=== PATIENT | female | born 1940 | race Hispanic/Latino ===

== ENCOUNTER → 2017-09-12 17:46 | Outpatient (CLI) | payer MEDICARE, SELFPAY ==
--- NOTE | 2017-09-12 17:53 | DI.MRI.S_ITS ---
PROCEDURE: MR ANKLE LT WO CON INDICATIONS: 77 year-old female with medial left ankle pain for 4 weeks. TECHNIQUE: Noncontrast sagittal T1 spin echo and T2 fast spin echo with fat saturation, axial proton density fast spin echo and T2 fast spin echo with fat saturation, coronal T1 spin echo and T2 fast spin echo with fat saturation through the ankle/hindfoot. COMPARISON: None. FINDINGS: Skin marker denotes the site of clinical concern. Image quality: Excellent. Bones and joints: No bone marrow contusions or fractures. An os naviculare is present, with a small amount of localized bone marrow edema on axial image 34. No hindfoot coalitions. Intraosseous ganglion cysts are noted both superior and inferior to the sinus tarsi. No osteochondral injuries of the talar dome. Degenerative intraosseous ganglion cysts are noted within the medial distal fibula. There is talonavicular joint degeneration as well, with localized subchondral marrow edema and cyst formation from full-thickness cartilage loss. No pathologic joint effusions. Medial structures: The posterior tibialis, flexor digitorum longus, and flexor hallucis longus tendons are intact. The posterior tibial neurovascular bundle appears normal within the tarsal tunnel, without extrinsic mass effect. The deep layer (anterior and posterior tibiotalar ligaments) and superficial layer (tibionavicular, tibiospring, and tibiocalcaneal ligaments) of the deltoid ligament appear normal. The spring ligament components (superomedial calcaneonavicular, medioplantar oblique calcaneonavicular, and inferoplantar longitudinal ligaments) are intact. Lateral structures: The anterior talofibular, calcaneofibular, and posterior talofibular ligaments appear intact. More superiorly, the anterior and posterior tibiofibular ligaments appear intact, as is the intermalleolar ligament. The tibiofibular syndesmosis is normal in width at 2 mm or less. The peroneus longus and brevis tendons demonstrate normal location and morphology. Adjacent bony peroneal tubercle and retrotrochlear prominence are normal in size. The sinus tarsi demonstrates loss of normal fatty signal, consistent with fibrosis. The calcaneonavicular and calcaneocuboid components of the bifurcate ligament appear intact. The dorsal calcaneocuboid ligament appears intact. Anterior structures: The tibialis anterior, extensor hallucis longus, and extensor digitorum longus tendons appear intact. The dorsal talonavicular ligament appears intact. Posterior and plantar structures: Achilles tendon is intact. Medial and lateral bands of the plantar fascia are of normal thickness. No abductor digiti quinti muscle atrophy to suggest Kwong neuropathy. IMPRESSION: 1. No imaging explanation for medial plantar left hindfoot pain corresponding to the skin marker. 2. 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 3. Additional localized joint degeneration involving the talonavicular joint, as well as the lateral aspect of the ankle mortise. 4. Os naviculare, with small localized bone marrow edema suggesting chronic abnormal bony motion. Dictated by: Jason Wen M.D. on 09/13/2017 at 8:32 Approved by: Jason Wen M.D. on 09/13/2017 at 8:42
== END ==
PROVIDERS: Family Provider Physician Assistant; PCP Physician Assistant; Visit Provider Podiatrist
DX: M19.072 Primary osteoarthritis, left ankle and foot (principal); M25.572 Pain in left ankle and joints of left foot
CPT/HCPCS: 73721

== ENCOUNTER → 2018-03-29 11:22 | Outpatient (CLI) | payer MEDICARE, SELFPAY ==
--- NOTE | 2018-03-29 | DI.RAD.S_ITS ---
PROCEDURE: XR THORACIC SPINE 3V INDICATIONS: THORACIC AND LUMBAR PAIN TECHNIQUE: 3 views of the thoracic spine were acquired. COMPARISON: None. FINDINGS: Bones: No fractures or dislocations. No suspicious bony lesions. Diffuse endplate sclerosis and spurring. Incidentally noted cervical disc degeneration. Soft tissues: No paravertebral stripe thickening. IMPRESSION: Diffuse cervical and thoracic disc degeneration. No fracture Dictated by: Sincere Mcmullen M.D. on 03/29/2018 at 12:44 Approved by: Sincere Mcmullen M.D. on 03/29/2018 at 12:45
--- NOTE | 2018-03-29 | DI.RAD.S_ITS ---
PROCEDURE: XR LUMBAR SPINE 2-3V INDICATIONS: THORACIC AND LUMBAR PAIN TECHNIQUE: 3 views of the lumbar spine were acquired. COMPARISON: [facility], , L-SPINE 2-3 VIEWS, 09/17/2014, 13:03. FINDINGS: Bones: No fracture or focal osseous destruction. Diffuse endplate spurring and sclerosis. Straightening of the normal lumbar lordosis grade 1 retrolisthesis of L2 on L3 and a L3 on L4. Severe narrowing of the L2-L3 disc space. Moderate L5-S1 disc degeneration and disc space narrowing. Soft tissues: Overlying bowel gas pattern is normal. Nonspecific right pelvic calcifications . Vascular calcifications. 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 Dictated by: Sincere Mcmullen M.D. on 03/29/2018 at 12:46 Approved by: Sincere Mcmullen M.D. on 03/29/2018 at 12:57
--- NOTE | 2018-03-29 11:28 | DI.RAD.S_ITS ---
PROCEDURE: XR HIP W PEL IF DONE RT 2V INDICATIONS: RIGHT HIP PAIN, THORACIC AND LUMBAR PAIN TECHNIQUE: 2 views of the hip were acquired. COMPARISON: [facility], , PELVIS WITH BILATERAL HIPS, 09/17/2014, 13:03. FINDINGS: Bones: No fractures or dislocations. No suspicious bony lesions. The visualized pelvic ring appears intact. Moderate right hip joint degeneration. Soft tissues: No suspicious soft tissue calcifications or masses. Nonspecific right pelvic calcifications are present IMPRESSION: Moderate right hip joint degeneration. No interval change since 09/17/14 Dictated by: Sincere Mcmullen M.D. on 03/29/2018 at 12:42 Approved by: Sincere Mcmullen M.D. on 03/29/2018 at 12:44
== END ==
PROVIDERS: Family Provider Physician Assistant; PCP Physician Assistant; Visit Provider Physician Assistant
DX: M25.551 Pain in right hip (principal); M54.5 Low back pain; M16.11 Unilateral primary osteoarthritis, right hip; M50.30 Other cervical disc degeneration, unspecified cervical region; M51.34 Other intervertebral disc degeneration, thoracic region; M51.36 Other intervertebral disc degeneration, lumbar region; M51.37 Other intervertebral disc degeneration, lumbosacral region; M47.816 Spondylosis without myelopathy or radiculopathy, lumbar region
CPT/HCPCS: 72072; 72082; 72100; 73502

== ENCOUNTER → 2018-06-23 10:31 | Outpatient (CLI) | payer MEDICARE, SELFPAY ==
--- NOTE | 2018-06-23 | DI.MG.S_ITS ---
BILATERAL DIGITAL SCREENING MAMMOGRAM 3D/2D WITH CAD: 06/23/2018 CLINICAL: Routine screening. Comparison is made to exams dated: 05/17/2017 mammogram - [facility], 12/13/2011 mammogram, and 12/29/2009 mammogram - [facility]. The tissue of both breasts is heterogeneously dense. This may lower the sensitivity of mammography. Current study was also evaluated with a Computer Aided Detection (CAD) system. There are benign calcifications in both breasts. No significant masses, calcifications, or other findings are seen in either breast. There has been no significant interval change. IMPRESSION: There is no mammographic evidence of malignancy. A 1 year screening mammogram is recommended. This exam was interpreted at Station ID: [id number]. NOTE: For mammograms, a report in lay terms will be sent to the patient. Approximately 15% of breast malignancies will not be visualized mammographically. In the management of a palpable breast mass, a negative mammogram must not discourage biopsy of a clinically suspicious lesion. Electronically Signed By: Rubin del rio/javy:06/25/2018 17:20:13 letter sent: Normal Exam ACR BI-RADS Category 2: Benign Finding(s) 3342F
== END ==
PROVIDERS: PCP Physician Assistant; Visit Provider Physician Assistant
DX: Z12.31 Encounter for screening mammogram for malignant neoplasm of breast (principal)
CPT/HCPCS: 77063; 77067

== ENCOUNTER 2018-09-13 05:07 | Emergency (ER) | payer MEDICARE, SELFPAY ==
[2018-09-13 05:18] VITALS: BP 175/73; PULSE 61; RESP 15; TEMP 36.8; O2SAT 95; BMI 35.2
--- NOTE | 2018-09-13 05:29 | ED_ITS ---
HPI - Abdominal Pain General Chief Complaint: Abdominal Pain Stated Complaint: pain on left side for 3 days Time Seen by Provider: 09/13/18 05:28 Source: patient Mode of arrival: ambulatory Limitations: no limitations History of Present Illness HPI narrative: Patient is relatively year old female here for evaluation of left sided upper abdomen pain. Patient states has been going on for the past 3 days. Has been worsening over this time. Some loose stools yesterday otherwise no diarrhea. No blood in her stools. No urinary symptoms. No vaginal bleeding. Had no prior abdominal surgeries. She states that the pain is somewhat better with palpation left side. She states that when she does press on the left side of her abdomen she belches which relieved her symptoms slightly for very short period of time. No change when she urinates. No history kidney stones. No skin changes. Related Data Home Medications Medication Instructions Recorded Confirmed Resmed Airsense 10 CPAP #1 ea 08/06/18 08/06/18 Allergies Allergy/AdvReac Type Severity Reaction Status Date / Time codeine Allergy Verified 08/06/18 13:29 Review of Systems Constitutional Denies fever(s) Cardiovascular Denies chest pain and Denies dyspnea Respiratory Denies dyspnea Gastrointestinal Gastrointestinal: Reports abdominal pain, Reports bloating, Denies change in stool character, Denies nausea and Denies vomiting Genitourinary Denies dysuria and Denies vaginal discharge Musculoskeletal Denies myalgias and Denies arthralgias Integumentary/Breasts Denies rash Neurologic Denies behavioral changes Psychiatric Denies behavioral changes Hematologic/Lymphatic Denies easy bleeding and Denies easy bruising [facility] Medical History (Updated 09/13/18 @ 07:18 by Irving Major DO) Sleep apnea (Acute) Social History Smoking Status: Former smoker Social History Smoking Status: Former smoker Exam Initial Vital Signs Initial Vital Signs: Vital Signs Temperature 98.2 F 09/13/18 05:18 Pulse Rate 61 09/13/18 05:18 Respiratory Rate 15 09/13/18 05:18 Blood Pressure 175/73 H 09/13/18 05:18 Pulse Oximetry 95 09/13/18 05:18 Const General: cooperative, well developed, well groomed and No acute distress Orientation: alert and awake HENMT Head: normal to inspection and normocephalic Resp Effort & Inspection: normal respiratory effort Auscultation: clear to auscultation bilaterally Cardio Rate: regular rate Rhythm: regular rhythm GI Inspection: non-distended Palpation: soft, No firm and tender (Left-sided abdomen) Auscultation: normal bowel sounds Back/Spine/Pelvis Back: No CVA tenderness Skin Lesions: no lesions Rashes: no rashes Neuro General: alert and awake Cognition: normal cognition Speech: speech normal Extrem General: normal to inspection and capillary refill normal Psych Appearance: grossly normal and well kempt Course Orders Ordered: ED Orders 09/13/18 05:30 Complete Blood Count AUTO DIFF Stat Comprehensive Metabolic Panel Stat Lactate (Lactic Acid) Stat Lipase Stat 09/13/18 05:36 CT abdomen pelvis w con Stat 09/13/18 05:40 Urine Microscopic Stat Sodium Chloride (Normal Saline 0.9%) 1,000 mls @ 150 mls/hr IV CONT EVANGELISTA Last Admin: 09/13/18 05:45 Dose: 150 mls/hr Discontinued Medications Al Hydrox/Mg Hydrox/Simethicone 20 ml/ Lidocaine HCl 15 ml 0 ml PO NOW ONE Stop: 09/13/18 07:01 Last Admin: 09/13/18 07:02 Dose: 45 ml Vital Signs - 8 hr 09/13/18 05:18 09/13/18 05:40 09/13/18 06:26 Temperature 98.2 F Pulse Rate 61 67 65 Respiratory Rate 15 16 16 Blood Pressure 175/73 H Blood Pressure [Right Arm] 159/92 H 151/73 H Pulse Oximetry 95 96 97 MDM - Abdominal Pain Lab Data Attestation: I reviewed the patient's lab results. Result diagrams: 09/13/18 05:30 09/13/18 05:30 Lab Results 09/13/18 09/13/18 09/13/18 Range/Units 05:30 05:30 05:30 WBC 7.6 (4.5-11.0) X10^3/uL RBC 4.77 (4.0-5.2) X10^6/uL Hgb 14.5 (12.0-16.0) g/dL Hct 42.8 (36-46) % MCV 89.8 (80-100) fL MCH 30.3 (26-34) PG MCHC 33.8 (30-36) % RDW 13.3 (11.6-14.8) % Plt Count 149 L (150-400) X10^3/uL Neut % (Auto) 55.6 (50-75) % Lymph % (Auto) 33.7 (25-40) % [place] % (Auto) 7.9 (3-14) % Eos % (Auto) 2.1 (2-4) % Baso % (Auto) 0.7 (0-2) % Neut # (Auto) 4200 (5671-8048) /uL Lymph # (Auto) 2500 (1966-2314) /uL [place] # (Auto) 600 (0-900) /uL Eos # (Auto) 200 (0-450) /uL Baso # (Auto) 100 (0-100) /uL Sodium 140 (137-145) mmol/L Potassium 3.9 (3.4-5.1) mmol/L Chloride 104 (98-107) mmol/L Carbon Dioxide 28 (22-32) mmol/L BUN 21 H (7-17) mg/dL Creatinine 0.80 (0.52-1.04) mg/dL Estimated GFR > 60.0 (>60) mL/min BUN/Creatinine Ratio 26.3 H (6-22) Glucose 119 H (80-110) mg/dL Lactate 1.3 (0.7-2.1) mmol/L Calcium 9.4 (8.4-10.2) mg/dL Total Bilirubin 0.6 (0.2-1.3) mg/dL AST 40 H (14-36) IU/L ALT 43 (9-52) IU/L Alkaline Phosphatase 84 (38-126) U/L Total Protein 7.2 (6.3-8.2) g/dL Albumin 4.0 (3.5-5.0) g/dL Globulin 3.2 (1.7-4.1) g/dL Albumin/Globulin Ratio 1.3 (1.0-2.8) Lipase 97 (23-300) U/L Urine RBC (0-5/HPF) Urine WBC (0-5/HPF) Ur Squamous Epith Cells (0-5/HPF) Urine Bacteria (None) Ur Culture Indicated? 09/13/18 Range/Units 05:40 WBC (4.5-11.0) X10^3/uL RBC (4.0-5.2) X10^6/uL Hgb (12.0-16.0) g/dL Hct (36-46) % MCV (80-100) fL MCH (26-34) PG MCHC (30-36) % RDW (11.6-14.8) % Plt Count (150-400) X10^3/uL Neut % (Auto) (50-75) % Lymph % (Auto) (25-40) % [place] % (Auto) (3-14) % Eos % (Auto) (2-4) % Baso % (Auto) (0-2) % Neut # (Auto) (3720-2988) /uL Lymph # (Auto) (0422-6809) /uL [place] # (Auto) (0-900) /uL Eos # (Auto) (0-450) /uL Baso # (Auto) (0-100) /uL Sodium (137-145) mmol/L Potassium (3.4-5.1) mmol/L Chloride (98-107) mmol/L Carbon Dioxide (22-32) mmol/L BUN (7-17) mg/dL Creatinine (0.52-1.04) mg/dL Estimated GFR (>60) mL/min BUN/Creatinine Ratio (6-22) Glucose (80-110) mg/dL Lactate (0.7-2.1) mmol/L Calcium (8.4-10.2) mg/dL Total Bilirubin (0.2-1.3) mg/dL AST (14-36) IU/L ALT (9-52) IU/L Alkaline Phosphatase (38-126) U/L Total Protein (6.3-8.2) g/dL Albumin (3.5-5.0) g/dL Globulin (1.7-4.1) g/dL Albumin/Globulin Ratio (1.0-2.8) Lipase (23-300) U/L Urine RBC None seen (0-5/HPF) Urine WBC None seen (0-5/HPF) Ur Squamous Epith Cells 1-5 /hpf (0-5/HPF) Urine Bacteria Occasional (0-1) (None) Ur Culture Indicated? Cult not indicated Point of care testing: Urine Dip Bedside Urine Glucose Negative Bedside Urine Bilirubin - Negative Bedside Urine Ketone - Negative Urine Specific [place] 1.020 Bedside Urine Occult Blood +/- Bedside Urine pH 6.0 Bedside Urine Protein - Negative Bedside Urine Urobilinogen - Negative Bedside Urine Nitrite - Negative Bedside Urine Leukocytes - Negative Esterase Imaging Data CT scan - abdomen: Radiologist's impression: L defined stranding noted at the root of the mesentery with associated prominent yet subcentimeter mesenteric lymph nodes. This is a nonspecific finding but can be seen in the setting of mesenteric panniculitis. Hepatic steatosis. Right renal cyst. No evidence of colitis diverticulitis bowel obstruction or obstructive uropathy. MDM Narrative Medical decision making narrative: Patient does have relatively benign abdominal exam. Her labs were unremarkable. CT scan shows nonspecific stranding of the mesentery. Patient also reports some improvement with pressure and also burping and worsening after she eats. She was given a GI cocktail here in the ER. Will have her start taking Zantac. She is going to contact her primary doctor later today. She is given return precautions she expressed understanding and agreement with plan. Discharge Plan Departure Patient Disposition: Home Clinical Impression: Abdominal pain Qualifiers: Abdominal location: left upper quadrant Qualified Code(s): R10.12 - Left upper quadrant pain Instructions: DI for Abdominal Pain-Adult Activity Restrictions/Additional Instructions: Recommend that you start taking Zantac or the generic version of this medication. You can purchase this [id number]. Recommend you take it on a daily basis for the next 7-10 days. Also recommend you contact your primary doctor for follow-up. Return to the emergency department for any new or worsening symptoms Prescriptions: No Action Resmed Airsense 10 CPAP Qty: 1 RF: 0 Referrals: Isa Cardenas PA-C [Primary Care Provider] -
--- NOTE | 2018-09-13 05:36 | DI.CT.S_ITS ---
PROCEDURE: CT ABDOMEN PELVIS W CON INDICATIONS: Left-sided abdominal pain TECHNIQUE: After the administration of intravenous contrast, 5 mm thick sections acquired from the diaphragm to the symphysis. 5 mm coronal and sagittal reformats were acquired. For radiation dose reduction, the following was used: automated exposure control, adjustment of mA and/or kV according to patient size. COMPARISON: None. FINDINGS: Image quality: Excellent. ABDOMEN: Lung bases: Dependent atelectasis and scarring are seen scattered in the periphery of bilateral lung bases. Heart size is mildly enlarged, no pericardial effusion. Solid organs: Liver is normal in size. Marked hepatic steatosis is seen, no discrete hepatic lesion. Gallbladder is within normal limits. Biliary system is non dilated. Pancreas enhances normally. Spleen is normal in size and enhancement. No adrenal nodules. Kidneys demonstrate normal size and enhancement, without hydronephrosis. Multiple right renal cortical and peripelvic cysts are seen and measures up to 5.5 x 5.3 cm in lower pole of right kidney. Peritoneum and bowel: Bowel loops demonstrate normal wall thickness and caliber. No free fluid or air. There is a small hiatal hernia. Mild sigmoid diverticulosis is seen with no CT evidence of acute diverticulitis. Nodes and vessels: No retroperitoneal or mesenteric adenopathy by size criteria. Subcentimeter lymph nodes are seen scattered in root of mesentery and measures up to 6 mm in size. Mild mesenteric fat stranding is also seen near the root of mesentery. Aorta and inferior vena cava are normal in size. Miscellaneous: No ventral hernias. PELVIS: Genitourinary: Bladder wall thickness is normal. Miscellaneous: No inguinal hernias or adenopathy. Bulky uterus is seen containing multiple calcified fibroids. Bones: No suspicious bony lesions. No vertebral body compression fractures. IMPRESSION: 1. No bowel obstruction. No abnormal bowel wall thickening. No free fluid or free air. Sigmoid diverticulosis with no CT evidence of acute diverticulitis. No free fluid or free air. 2. 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 3. Hepatic steatosis. Right renal cysts as above. 4. No myomatous uterus. No discrepancies. Dictated by: Frandy Peña M.D. on 09/13/2018 at 8:51 Approved by: Frandy Peña M.D. on 09/13/2018 at 8:56
[2018-09-13 05:40] VITALS: BP 159/92; PULSE 67; RESP 16; O2SAT 96
[2018-09-13] MEDS: SODIUM CHLORIDE 0.9% 1,000 ML 150 ML IV (05:45)
[2018-09-13 05:48] LABS: RBC Urine None Seen (0-5/HPF); WBC Urine None Seen (0-5/HPF)
[2018-09-13 05:52] LABS: Add Manual Diff / Slide Review NO; Basophils Absolute Auto 100 /uL (0-100); Basophils Percent Auto 0.7 % (0-2); Eosinophils Absolute Auto 200 /uL (0-450); Eosinophils Percent Auto 2.1 % (2-4); Hematocrit 42.8 % (36-46); Hemoglobin 14.5 g/dL (12.0-16.0); Lymphocytes Absolute Auto 2500 /uL (1100-4500); Lymphocytes Percent Auto 33.7 % (25-40); Mean Corpuscular HGB Conc 33.8 % (30-36); Mean Corpuscular Hemoglobin 30.3 PG (26-34); Mean Corpuscular Volume 89.8 fL (80-100); Monocytes Absolute Auto 600 /uL (0-900); Monocytes Percent Auto 7.9 % (3-14); Neutrophils Absolute Auto 4200 /uL (1500-7000); Neutrophils Percent Auto 55.6 % (50-75); Platelet Count 149 X10^3/uL (150-400); Red Blood Cell Count 4.77 X10^6/uL (4.0-5.2); Red Cell Distribution Width 13.3 % (11.6-14.8); White Blood Cell Count 7.6 X10^3/uL (4.5-11.0)
[2018-09-13 05:58] LABS: Bacteria Urine Occasional (0-1); Culture Indicated Urine Cult Not Indicated; Squamous Epithelial Cell Urine 1-5 /HPF (0-5/HPF)
[2018-09-13 06:03] LABS: Alanine Aminotransferase 43 IU/L (9-52); Albumin Globulin Ratio 1.3 (1.0-2.8); Alkaline Phosphatase 84 U/L (38-126); Aspartate Aminotransferase 40 IU/L (14-36); BUN Creatinine Ratio 26.3 (6-22); Bilirubin Total 0.6 mg/dL (0.2-1.3); Blood Urea Nitrogen 21 mg/dL (7-17); Calcium 9.4 mg/dL (8.4-10.2); Carbon Dioxide 28 mmol/L (22-32); Chloride 104 mmol/L (98-107); Estimated Glomerular Filt Rate > 60.0 mL/min (>60); Globulin 3.2 g/dL (1.7-4.1); Glucose 119 mg/dL (80-110); HEMOLYSIS < 15 (0-50); Lipase 97 U/L (23-300); Potassium 3.9 mmol/L (3.4-5.1); Sodium 140 mmol/L (137-145); Total Protein 7.2 g/dL (6.3-8.2)
[2018-09-13 06:04] LABS: Lactate (Lactic Acid) 1.3 mmol/L (0.7-2.1)
[2018-09-13 06:26] VITALS: BP 151/73; PULSE 65; RESP 16; O2SAT 97
[2018-09-13] MEDS: MAG HYDROX/ALUMINUM/SIMETH SUS 20 ML, LIDOCAINE VISCOUS 2% 15 ML PO (07:02)
[2018-09-13 07:37] VITALS: BP 156/80; PULSE 70; RESP 17; O2SAT 99
== END 2018-09-13 07:39 | disposition home or self-care (01) ==
PROVIDERS: Emergency Provider Emergency Medicine; PCP Student in an Organized Health Care Education/Training Program
DX: R10.12 Left upper quadrant pain (principal)
CPT/HCPCS: 36591; 74177; 80053; 81003; 81015; 83605; 83690; 85025; 96360; 96361; 99283; 99284; Q9967

== ENCOUNTER 2018-09-25 13:49 | Day surgery (SDC) | payer MEDICARE, SELFPAY ==
[2018-09-25] MEDS: SODIUM CHLORIDE 0.9% 1,000 ML 200 ML IV (14:05)
[2018-09-25 14:10] VITALS: BP 120/75; PULSE 76; RESP 20; TEMP 36.4; O2SAT 98
[2018-09-25 14:11] VITALS: BMI 34.7
--- NOTE | 2018-09-25 14:16 | PM.HP.1 ---
History of Present Illness Date Patient Seen: 09/25/18 Time Patient Seen: 14:16 Chief complaint: [id number] Narrative: 78yo F with history of polyps and family history of CRC in mother who was in her 90s at diagnosis. No symptoms in patient. Last scope 5 years ago with findings of diverticulosis and a 'diminutive' polyp. Patient History Medical History Sleep apnea (Acute) Social History Smoking Status: Former smoker Family & Social History Tobacco & Substance use: Smoking Status Former smoker alcohol intake frequency holiday/special occasion Substance Use Type does not use Meds Home Medications Medication Instructions Recorded Confirmed Type Resmed Airsense 10 CPAP #1 ea 08/06/18 08/06/18 History Allergies Allergy/AdvReac Type Severity Reaction Status Date / Time codeine Allergy Verified 08/06/18 13:29 Review of Systems Constitutional Constitutional: Reports as per HPI Exam Vital Signs (past 8 hours): - 09/25/18 14:10 Temperature 97.6 F Pulse Rate 76 Respiratory Rate 20 Blood Pressure 120/75 Pulse Oximetry 98 Oxygen Delivery Method Room Air Narrative Exam Narrative: AAO, NAD, female of healthy weight EOMI, MMM, no scleral icterus unlabored RA soft, nt/nd MAEW visible skin dry and intact Assessment & Plan (1) History of colon polyps: Current visit: Yes Status: Acute Assessment & Plan narrative: - plan for surveillance colonoscopy in high risk patient --> all R/B/A discussed and pt wishes to proceed
[2018-09-25] MEDS: MIDAZOLAM 5 MG/5 ML VIAL IV (14:56)
[2018-09-25] MEDS: fentaNYL 250 MCG/5 ML INJ IV (14:58)
--- NOTE | 2018-09-25 15:05 | PM.OP.ENDO ---
Operative Date/Time/Diagnoses Date of procedure: 09/25/18 Time of procedure: 15:05 Pre-op diagnosis: Surveillance colonoscopy Post-op diagnosis: same Procedure & Clinicians Study performed: Surveillance colonoscopy in high risk patient Same procedure as scheduled: Yes Indications: 78yo F with family history of CRC and a personal history of small benign polyps on last screen 5 years ago. No concerning symptoms. All risks, benefits, and alternatives discussed and pt wishes to proceed. Surgeon: Jeanette Wiggins Procedure Notes SCOAP/Timeout: 1432 Procedure in detail: After obtaining informed consent, the patient was brought to the GI suite and placed in the left lateral decubitus position on the examination table. After placement of appropriate monitors, the patient was given incremental doses of Versed and Fentanyl until an appropriate level of sedation was achieved. A time out was held per SCOAP protocol. A digital rectal examination was performed and did not reveal any masses or obstructing lesions. The colonoscope was gently passed into the patient's anus and the entire colon navigated to the level of the cecum with minimal difficulty other than some challenge dropping into the cecum which was aided by abdominal pressure. Prep was adequate. Once in the cecum, the scope was slowly withdrawn being sure to go before and beyond all mucosal folds and prominences as able to get a thorough examination. No masses or polyps are noted. A few small and scattered diverticula were noted in the sigmoid colon. At the level of the rectal vault, the scope was retroflexed and the internal anal canal was examined. The scope was straightened and air aspirated from the colon. The instrument was removed from the patient's body and the procedure was concluded. The patient was allowed to awaken from sedation without difficulty and taken to the post-anesthesia care unit in good condition. Scope withdrawal time: 9 min Sedation minutes: 30 Findings: diverticulosis (small and scattered through sigmoid) Specimen(s): none sent Complications: none Impression: Diverticulosis- few, small and scattered in sigmoid Recommendations: Colonscopy in 5 years (due to high risk ) and High fiber diet Follow up: as needed Disposition: PACU
[2018-09-25 15:10] VITALS: BP 134/70; PULSE 67; RESP 15; TEMP 36.3; O2SAT 94
[2018-09-25 15:15] VITALS: BP 123/63; PULSE 63; RESP 14; O2SAT 94
[2018-09-25 15:20] VITALS: BP 123/62; PULSE 62; RESP 14; O2SAT 94
[2018-09-25 15:25] VITALS: BP 117/62; PULSE 61; RESP 16; TEMP 36.3; O2SAT 94
[2018-09-25 15:49] VITALS: BP 112/61; PULSE 72; RESP 16; TEMP 35.8; O2SAT 95
== END 2018-09-25 16:56 | disposition home or self-care (01) ==
PROVIDERS: PCP Student in an Organized Health Care Education/Training Program; Visit Provider Surgery
PROC: 0DJD8ZZ Inspection of Lower Intestinal Tract, Via Natural or Artificial Opening Endoscopic (ICD-10-PCS; CPT 45378; principal; 2018-09-25 15:00)
DX: Z86.010 Personal history of colon polyps (principal); Z80.0 Family history of malignant neoplasm of digestive organs; K57.30 Diverticulosis of large intestine without perforation or abscess without bleeding; G47.30 Sleep apnea, unspecified; Z87.891 Personal history of nicotine dependence
CPT/HCPCS: G0105; 99152; 99153; J2250; J3010

== ENCOUNTER → 2019-01-30 13:30 | Outpatient (CLI) | payer MEDICARE, SELFPAY | PROVIDERS: PCP Student in an Organized Health Care Education/Training Program; Visit Provider Student in an Organized Health Care Education/Training Program | DX: M85.852 Other specified disorders of bone density and structure, left thigh (principal); Z78.0 Asymptomatic menopausal state | CPT/HCPCS: 77080 ==

== ENCOUNTER → 2020-05-20 09:45 | Outpatient (CLI) | payer MEDICARE, SELFPAY ==
--- NOTE | 2020-05-20 | DI.RAD.S_ITS ---
PROCEDURE: XR ANKLE RT MIN 3V INDICATIONS: Pain in right ankle and joints of right foot TECHNIQUE: 3 views of the ankle were acquired. COMPARISON: None. FINDINGS: Bones: No fractures or dislocations. Ankle mortise is normally aligned. No suspicious bony lesions. Soft tissues: No tibiotalar joint effusion. Achilles tendon appears normal. IMPRESSION: No trauma found. Note is made of a plantar fascia insertion spur at the posterior calcaneus which may be associated with plantar fasciitis. Dictated by: Solo Jackson M.D. on 05/20/2020 at 10:54 Approved by: Solo Jackson M.D. on 05/20/2020 at 10:55
== END ==
PROVIDERS: PCP Student in an Organized Health Care Education/Training Program; Referring Provider Student in an Organized Health Care Education/Training Program; Visit Provider Student in an Organized Health Care Education/Training Program
DX: M25.571 Pain in right ankle and joints of right foot (principal); M77.31 Calcaneal spur, right foot
CPT/HCPCS: 73610

== ENCOUNTER → 2020-10-28 10:53 | Outpatient (CLI) | payer MEDICARE, SELFPAY ==
[2020-10-28 13:41] LABS: COVID19 -Nasal RAPID Negative (Negative)
== END ==
PROVIDERS: PCP Student in an Organized Health Care Education/Training Program; Visit Provider Physician Assistant
DX: J02.9 Acute pharyngitis, unspecified (principal); R53.83 Other fatigue; Z20.822 Contact with and (suspected) exposure to COVID-19
CPT/HCPCS: 87635

== ENCOUNTER → 2021-04-28 10:45 | Outpatient (CLI) | payer MEDICARE, SELFPAY ==
[2021-04-28 11:30] LABS: COVID19 -Nasal RAPID Negative (Negative)
== END ==
PROVIDERS: PCP Student in an Organized Health Care Education/Training Program; Visit Provider Nurse Practitioner Family
DX: Z20.822 Contact with and (suspected) exposure to COVID-19 (principal); R09.89 Other specified symptoms and signs involving the circulatory and respiratory systems
CPT/HCPCS: 87635

== ENCOUNTER → 2021-07-02 11:05 | Outpatient (CLI) | payer MEDICARE, SELFPAY ==
--- NOTE | 2021-07-02 11:15 | DI.CT.S_ITS ---
PROCEDURE: CT ABDOMEN WO/W CON INDICATIONS: RENAL CYST TECHNIQUE: Optional 5 mm thick noncontrast images acquired from the diaphragm to the iliac crests. After the administration of intravenous contrast, 5 mm thick images again acquired from the diaphragm to the iliac crests in the arterial and urographic phases. 5 mm thick coronal and sagittal reformats were then acquired. For radiation dose reduction, the following was used: automated exposure control, adjustment of mA and/or kV according to patient size. COMPARISON: CT, ABDOMEN/PELVIS WITHOUT CONTRAS, 07/10/2013, 9:22. [facility], CT, CT ABDOMEN PELVIS W CON, 09/13/2018, 5:45. FINDINGS: Image quality: Excellent. Lung bases: Lung bases are clear. Heart size is normal. No hiatal hernia. Genitourinary: 4.9 x 4.4 cm nonenhancing, thin-walled cyst arises from the anterior lower pole of the right kidney. Corticomedullary 1.3 cm cyst in the posterior right lower pole. Subcentimeter occasional cortical cysts are seen in the left kidney. No enhancing solid renal mass. Intrarenal collecting systems are normally opacified without filling defect. There is no hydronephrosis. No nephrolithiasis. The proximal ureters are normal in course and caliber. No urolithiasis. Other solid organs: Liver is at the upper limits of normal in size measuring 19.6 cm in length and demonstrates slight steatosis. There is slight relative left and caudate lobe hypertrophy and question of micronodular liver margin. There are no enhancing masses postcontrast. The spleen is normal size. There is a splenule at the hilum. The pancreas, adrenal glands, and gallbladder appear normal. Peritoneum and bowel: Occasional descending colonic diverticulosis. Stomach, visible small bowel and large bowel loops are otherwise normal no free air or free fluid. Nodes and vessels: Tortuous aortic course. Normal aortic caliber. Mild abdominal aortic atherosclerotic calcification. The IVC is patent. No retroperitoneal or visible mesenteric lymph nodes. Bones: No suspicious bony lesions. L3 hemangioma. Degenerative disc height loss at L2-3 with trace retrolisthesis. No vertebral body compression fractures. Miscellaneous: No ventral hernias. IMPRESSION: 1. Slight interval decrease in size of exophytic right lower pole renal cyst compared to 2019. 2. No suspicious renal masses or hydronephrosis. 3. Mild hepatomegaly and hepatic steatosis with questionable nodular liver margin. Correlate with LFTs. Dictated by: Arabella Potter M.D. on 07/02/2021 at 12:36 Approved by: Arabella Potter M.D. on 07/02/2021 at 12:45
== END ==
PROVIDERS: PCP Student in an Organized Health Care Education/Training Program; Referring Provider Student in an Organized Health Care Education/Training Program; Visit Provider Student in an Organized Health Care Education/Training Program
DX: N28.1 Cyst of kidney, acquired (principal); R10.9 Unspecified abdominal pain; K76.0 Fatty (change of) liver, not elsewhere classified
CPT/HCPCS: 74170; Q9967

== ENCOUNTER → 2022-02-10 11:19 | Outpatient (CLI) | payer MEDICARE, SELFPAY ==
--- NOTE | 2022-02-10 | DI.RAD.S_ITS ---
PROCEDURE: XR LUMBAR SPINE 2-3V INDICATIONS: Other chronic pain TECHNIQUE: 3 views of the lumbar spine were acquired. COMPARISON: [facility], CR, XR LUMBAR SPINE 2-3V, 03/29/2018, 11:36. FINDINGS: Bones: 5 [id number] vertebrae are present. Trace degenerative retrolisthesis of L2 on L3 and of L3 on L4. Lower lumbar facet arthropathy. Suspect canal stenosis. No vertebral body compression fractures. No suspicious bony lesions. Soft tissues: Overlying bowel gas pattern is normal. No suspicious soft tissue calcifications. IMPRESSION: Lower lumbar facet arthropathy. Suspect canal stenosis. Comment: Lumbar spine MRI may potentially be helpful. Dictated by: Jakob Ventura M.D. on 02/10/2022 at 20:53 Approved by: Jakob Ventura M.D. on 02/10/2022 at 20:54
--- NOTE | 2022-02-10 | DI.RAD.S_ITS ---
PROCEDURE: XR HIP W PEL IF DONE RT 2V INDICATIONS: Other chronic pain TECHNIQUE: AP pelvis with lateral view(s) of the right hip(s). COMPARISON: [facility], , XR HIP W PEL IF DONE RT 2V, 03/29/2018, 11:34. FINDINGS: Bones: No fractures or dislocations. Pelvic ring appears intact. No suspicious bony lesions. Moderate superior lateral right hip joint space loss. Soft tissues: The visualized bowel gas pattern is normal. No suspicious soft tissue calcifications. Calcified uterine fibroids. IMPRESSION: Degenerative arthritis of the right hip. No evidence acute bony abnormality of the pelvis and right hip. If clinical suspicion and/or symptoms persist, further assessment with repeat plain films, or advanced imaging (e.g., CT, MRI, or bone scan) may be helpful for further assessment. Dictated by: Jakob Ventura M.D. on 02/10/2022 at 20:54 Approved by: Jakob Ventura M.D. on 02/10/2022 at 20:55
== END ==
PROVIDERS: PCP Student in an Organized Health Care Education/Training Program; Referring Provider Student in an Organized Health Care Education/Training Program; Visit Provider Student in an Organized Health Care Education/Training Program
DX: M47.816 Spondylosis without myelopathy or radiculopathy, lumbar region (principal); M16.11 Unilateral primary osteoarthritis, right hip; M54.41 Lumbago with sciatica, right side; M25.551 Pain in right hip; G89.29 Other chronic pain
CPT/HCPCS: 72100; 73502

== ENCOUNTER → 2022-07-19 | Outpatient (CLI) | payer MEDICARE, OTHER, SELFPAY ==
--- NOTE | 2022-07-19 14:43 | DI.CT.S_ITS ---
PROCEDURE: CT HEAD/BRAIN WO CON INDICATIONS: cognitive impairment/dementia TECHNIQUE: Noncontrast 4.5 mm thick angled axial sections acquired from the foramen magnum to the vertex, with coronal and sagittal reformats. For radiation dose reduction, the following was used: automated exposure control, adjustment of mA and/or kV according to patient size. COMPARISON: None. FINDINGS: Image quality: Excellent. CSF spaces: Basal cisterns are patent. No extra-axial fluid collections. The ventricles are symmetric in size and shape. Brain: No intracranial bleeds or masses. There is cerebral volume loss for age, with resultant ventricular and sulcal prominence. There are periventricular and deep white matter chronic small vessel ischemic changes. There is intracranial internal carotid artery atherosclerosis. Symmetric calcification can be seen involving the basal ganglia, which is considered to be normal for age. Skull and face: Calvarium and visualized facial bones appear intact, without suspicious lesions. Incidental note is made of hyperostosis frontalis. This is not considered to be pathologic in a woman of this age. Sinuses: Visualized sinuses and mastoids are clear. IMPRESSION: Noncontrast head CT within normal limits for age. Dictated by: Andrea Carpenter M.D. on 07/19/2022 at 14:55 Approved by: Andrea Carpenter M.D. on 07/19/2022 at 14:56
--- NOTE | 2022-07-19 14:43 | DI.RAD.S_ITS ---
Bone Density Report Name: RUSSELL BATES Age: 82 Sex: Female Ethnicity: White Date of : 1940 Indication: postmenopausal; screening for osteoporosis; Referring Provider: MARCO MARTE Study: Bone densitometry was performed. Exam Date: July 19, 2022 Accession number: [id number] Bone Density: Region BMD T-score Z-score Classification AP Spine(L1-L4) 0.923 -1.1 1.7 Osteopenia Femoral Neck (Left) 0.628 -2.0 0.5 Osteopenia Total Hip (Left) 0.801 -1.2 1.1 Osteopenia Femoral Neck (Right) 0.669 -1.6 0.9 Osteopenia Total Hip (Right) 0.794 -1.2 1.1 Osteopenia Total Hip Mean 0.797 -1.2 1.1 Osteopenia World Health Organization criteria for BMD impression classify patients as: Normal (T-score at or above -1.0), Osteopenia (T-score between -1.0 and -2.5), or Osteoporosis (T-score at or below -2.5). 10-year Fracture Risk(1): Major Osteoporotic Fracture 14% Hip Fracture 4.0% Reported Risk Factors: [place] (), Neck BMD=0.628, BMI=37.1 (1) FRAX(R) Version 3.08. Fracture probability calculated for an untreated patient. Fracture probability may be lower if the patient has received treatment. Previous Exams: -- Region Exam Age BMD T-score BMD Change BMD Change Date g/cm2 vs Baseline vs Previous -- AP Spine (L1-L4) 07/19/2022 82 0.923 -1.1 -0.113 (-10.9%)# -0.113 (-10.9%)# 01/30/2019 78 1.036 -0.1 Total Hip(Left) 07/19/2022 82 0.801 -1.2 -0.014 (-1.7%)# -0.014 (-1.7%)# 01/30/2019 78 0.814 -1.0 Total Hip(Right) 07/19/2022 82 0.794 -1.2 -0.058 (-6.8%)# -0.058 (-6.8%)# 01/30/2019 78 0.852 -0.7 -- *Denotes significance at 95% confidence level, LSC for AP Spine = 0.022 g/cm2, LSC for Total Hip = 0.027 g/cm2 # Denotes dissimilar scan types or analysis methods Impression: The patient has low bone mass, based on the Left Femoral Neck T-score. The patient has an estimated ten-year risk of hip fracture of 4% and an estimated ten-year risk of major fracture of 14%, based on the WHO FRAX algorithm. No significant bone loss was observed. Discussion: BONE DENSITY IS LOW AT ONE OR MORE SKELETAL SITES. THE PATIENT'S BMD AND CLINICAL RISK FACTORS CONTRIBUTE TO THIS PATIENT'S INCREASED RISK OF FRACTURE. This patient's lowest T-score is low at one or more skeletal sites. It meets the World Health Organization's (WHO) criteria for low bone mass (T-score between -1.0 and -2.5). The patient's 10-year risk of hip fracture as calculated by FRAX exceeds the threshold where pharmacological therapy is recommended by the National Osteoporosis Foundation (NOF). However, all treatment decisions require clinical judgment and consideration of individual patient factors, including patient preferences, comorbidities, previous drug use, risk factors not captured in the FRAX model (e.g., frailty, falls, vitamin D deficiency, increased bone turnover, interval significant decline in bone density) and possible under or overestimation of fracture risk by FRAX. The patient should follow a healthful lifestyle (good nutrition with adequate calcium and vitamin D, and appropriate weight-bearing exercise). Follow-Up: Consider a repeat BMD and Vertebral Fracture Assessment (VFA) exam in 2 years or sooner if medically necessary, to reassess this patient's status. Reported by: AJIT DODGE M.D. on 07/19/2022 3:03:00 PM.
== END ==
PROVIDERS: PCP Internal Medicine; Referring Provider Internal Medicine; Visit Provider Internal Medicine
DX: R41.89 Other symptoms and signs involving cognitive functions and awareness (principal); Z78.0 Asymptomatic menopausal state; Z13.820 Encounter for screening for osteoporosis; M85.852 Other specified disorders of bone density and structure, left thigh
CPT/HCPCS: 70450; 77080

== ENCOUNTER → 2022-07-20 10:28 | Outpatient (CLI) | payer MEDICARE, OTHER, SELFPAY ==
[2022-07-20 11:18] LABS: Hematocrit 40.3 % (36-46); Hemoglobin 13.6 g/dL (12.0-16.0); Mean Corpuscular HGB Conc 33.6 % (30-36); Mean Corpuscular Hemoglobin 29.8 PG (26-34); Mean Corpuscular Volume 88.6 fL (80-100); Platelet Count 112 X10^3/uL (150-400); Red Blood Cell Count 4.55 X10^6/uL (4.0-5.2); Red Cell Distribution Width 14.4 % (11.6-14.8); White Blood Cell Count 6.7 X10^3/uL (4.5-11.0)
[2022-07-20 11:30] LABS: Alanine Aminotransferase 46 IU/L (<35); Albumin 3.9 g/dL (3.5-5.0); Albumin Globulin Ratio 1.1 (1.0-2.8); Alkaline Phosphatase 82 U/L (38-126); Aspartate Aminotransferase 77 IU/L (14-36); BUN Creatinine Ratio 22.5 (6-22); Bilirubin Total 0.9 mg/dL (0.2-1.3); Blood Urea Nitrogen 16 mg/dL (7-17); Calcium 8.7 mg/dL (8.4-10.2); Carbon Dioxide 26 mmol/L (22-32); Chloride 105 mmol/L (98-107); Cholesterol 213 mg/dL (140-199); Estimated Glomerular Filt Rate > 60 mL/min (>60); Globulin 3.5 g/dL (1.7-4.1); Glucose 123 mg/dL (80-110); HDL Cholesterol 38 mg/dL (40-60); HEMOLYSIS < 15 (0-50); LDL Cholesterol Calculated 139 mg/dL (<100); Potassium 3.8 mmol/L (3.4-5.1); Sodium 139 mmol/L (137-145); Total Protein 7.4 g/dL (6.3-8.2); Triglycerides 181 mg/dL (35-150)
[2022-07-20 12:15] LABS: TSH w/ Reflex to FT4 1.62 uIU/mL (0.47-4.68)
[2022-07-20 12:19] LABS: Vitamin B12 467 pg/mL (239-931)
== END ==
PROVIDERS: PCP Internal Medicine; Referring Provider Internal Medicine; Visit Provider Internal Medicine
DX: E53.8 Deficiency of other specified B group vitamins (principal); E78.2 Mixed hyperlipidemia; R41.89 Other symptoms and signs involving cognitive functions and awareness
CPT/HCPCS: 36415; 80053; 80061; 82607; 84443; 85027

== ENCOUNTER → 2023-11-22 11:55 | Outpatient (CLI) | payer MEDICARE, OTHER, SELFPAY ==
[2023-11-22 12:26] LABS: Hematocrit 39.9 % (36-46); Hemoglobin 13.6 g/dL (12.0-16.0); Mean Corpuscular HGB Conc 34.1 % (30-36); Mean Corpuscular Hemoglobin 30.1 PG (26-34); Mean Corpuscular Volume 88.3 fL (80-100); Platelet Count 111 X10^3/uL (150-400); Red Blood Cell Count 4.51 X10^6/uL (4.0-5.2); Red Cell Distribution Width 14.8 % (11.6-14.8); White Blood Cell Count 7.1 X10^3/uL (4.5-11.0)
[2023-11-22 12:34] LABS: Cholesterol 209 mg/dL (140-199); HDL Cholesterol 45 mg/dL (40-60); LDL Cholesterol Calculated 113 mg/dL (<100); Triglycerides 256 mg/dL (35-150)
[2023-11-22 12:50] LABS: Neutrophils Absolute Manual 4686 /uL (3000-5900); RBC Morphology Normal Morphology; Total Cells Counted 100
[2023-11-22 13:10] LABS: TSH w/ Reflex to FT4 2.04 uIU/mL (0.47-4.68)
== END ==
PROVIDERS: PCP Internal Medicine; Referring Provider Internal Medicine; Visit Provider Internal Medicine
DX: E78.2 Mixed hyperlipidemia (principal); G47.33 Obstructive sleep apnea (adult) (pediatric)
CPT/HCPCS: 36415; 80061; 84443; 85025

== ENCOUNTER → 2024-04-16 14:42 | Outpatient (CLI) | payer MEDICARE, OTHER, SELFPAY | PROVIDERS: PCP Internal Medicine; Visit Provider Physician Assistant Surgical | DX: R30.0 Dysuria (principal) | CPT/HCPCS: 87077; 87086 ==

== ENCOUNTER → 2024-08-06 15:35 | Outpatient (CLI) | payer MEDICARE, OTHER, SELFPAY | PROVIDERS: PCP Internal Medicine; Visit Provider Physician Assistant | DX: R82.90 Unspecified abnormal findings in urine (principal) | CPT/HCPCS: 81002; 87077; 87086; 87186 ==

== ENCOUNTER → 2024-08-14 16:00 | Outpatient (CLI) | payer MEDICARE, OTHER, SELFPAY ==
[2024-08-14 16:24] LABS: Hematocrit 38.4 % (36-46); Mean Corpuscular HGB Conc 33.8 % (30-36); Mean Corpuscular Volume 88.6 fL (80-100); Platelet Count 104 X10^3/uL (150-400); Red Blood Cell Count 4.34 X10^6/uL (4.0-5.2); Red Cell Distribution Width 14.3 % (11.6-14.8); White Blood Cell Count 6.9 X10^3/uL (4.5-11.0)
[2024-08-14 16:34] LABS: Hemoglobin A1C% w Est Avg Glu 7.1 % (4.0-6.0)
[2024-08-14 16:49] LABS: Alanine Aminotransferase 35 IU/L (<35); Albumin 3.9 g/dL (3.5-5.0); Albumin Globulin Ratio 1.1 (1.0-2.8); Alkaline Phosphatase 116 U/L (38-126); Aspartate Aminotransferase 80 IU/L (14-36); BUN Creatinine Ratio 23.4 (6-22); Bilirubin Total 1.3 mg/dL (0.2-1.3); Blood Urea Nitrogen 18 mg/dL (7-17); Calcium 9.4 mg/dL (8.4-10.2); Carbon Dioxide 27 mmol/L (22-32); Chloride 104 mmol/L (98-107); Estimated Glomerular Filt Rate > 60 mL/min (>60); Globulin 3.5 g/dL (1.7-4.1); Glucose 201 mg/dL (70-99); HEMOLYSIS < 15 (0-50); Potassium 3.9 mmol/L (3.4-5.1); Sodium 138 mmol/L (137-145); Total Protein 7.4 g/dL (6.3-8.2)
[2024-08-14 17:20] LABS: TSH w/ Reflex to FT4 1.47 uIU/mL (0.47-4.68)
== END ==
PROVIDERS: PCP Internal Medicine; Referring Provider Internal Medicine; Visit Provider Internal Medicine
DX: E78.2 Mixed hyperlipidemia (principal); R73.01 Impaired fasting glucose
CPT/HCPCS: 36415; 80053; 83036; 84443; 85027

== ENCOUNTER → 2024-08-27 14:43 | Outpatient (CLI) | payer MEDICARE, OTHER, SELFPAY ==
[2024-08-27 16:30] LABS: Appearance Urine UA CLEAR; Bilirubin Urine UA NEGATIVE (NEGATIVE); Color Urine UA YELLOW; Glucose Urine UA 2+ g/dL (Negative); Ketones Urine UA TRACE (NEGATIVE); Leukocyte Esterase Urine UA NEGATIVE (NEGATIVE); Nitrite Urine UA POSITIVE (Negative); Occult Blood Urine UA NEGATIVE (Negative); Protein Urine UA NEGATIVE (Negative); Specific Gravity Urine UA >=1.030 (1.000-1.035); Urobilinogen Urine UA 0.2 E.U./dL (0.2)
[2024-08-27 16:32] LABS: pH Urine UA 5.5 (4.5-8.0)
[2024-08-27 16:38] LABS: Bacteria Urine Moderate (10-30); Culture Indicated Urine Specimen Cultured; RBC Urine 1-5/HPF (0-5/HPF); Squamous Epithelial Cell Urine 5-10 /HPF (0-5/HPF); Urine Volume 10mL (spun); WBC Urine 5-10/HPF (0-5/HPF)
== END ==
PROVIDERS: PCP Internal Medicine; Referring Provider Internal Medicine; Visit Provider Internal Medicine
DX: N30.00 Acute cystitis without hematuria (principal)
CPT/HCPCS: 81001; 87077; 87086; 87186

== ENCOUNTER → 2025-01-02 16:13 | Outpatient (CLI) | payer MEDICARE, OTHER, SELFPAY ==
[2025-01-02 17:00] LABS: Hematocrit 36.9 % (36-46); Hemoglobin 12.6 g/dL (12.0-16.0); Mean Corpuscular HGB Conc 34.1 % (30-36); Mean Corpuscular Hemoglobin 30.0 PG (26-34); Mean Corpuscular Volume 88.1 fL (80-100); Platelet Count 96 X10^3/uL (150-400)
[2025-01-02 17:11] LABS: Hemoglobin A1C% w Est Avg Glu 8.3 % (4.0-6.0)
[2025-01-02 17:14] LABS: Alanine Aminotransferase 23 IU/L (<35); Albumin 3.7 g/dL (3.5-5.0); Albumin Globulin Ratio 1.0 (1.0-2.8); Alkaline Phosphatase 146 U/L (38-126); Blood Urea Nitrogen 12 mg/dL (7-17); Calcium 8.9 mg/dL (8.4-10.2); Carbon Dioxide 25 mmol/L (22-32); Chloride 104 mmol/L (98-107); Cholesterol 185 mg/dL (140-199); Estimated Glomerular Filt Rate > 60 mL/min (>60); Globulin 3.6 g/dL (1.7-4.1); Glucose 260 mg/dL (70-99); HDL Cholesterol 49 mg/dL (40-60); HEMOLYSIS < 15 (0-50); Potassium 3.7 mmol/L (3.4-5.1); Sodium 137 mmol/L (137-145); Total Protein 7.3 g/dL (6.3-8.2); Triglycerides 178 mg/dL (35-150)
[2025-01-02 17:46] LABS: TSH w/ Reflex to FT4 2.43 uIU/mL (0.47-4.68)
[2025-01-02 18:05] LABS: Vitamin B12 > 1000 pg/mL (239-931)
== END ==
PROVIDERS: PCP Internal Medicine; Referring Provider Internal Medicine; Visit Provider Internal Medicine
DX: R73.01 Impaired fasting glucose (principal); E53.8 Deficiency of other specified B group vitamins; G47.33 Obstructive sleep apnea (adult) (pediatric)
CPT/HCPCS: 36415; 80053; 80061; 82607; 83036; 84443; 85027

== ENCOUNTER → 2025-03-28 13:52 | Outpatient (CLI) | payer MEDICARE, OTHER, SELFPAY ==
[2025-03-28 15:12] LABS: Influenza A - CEPHEID Flu A NEGATIVE (NEGATIVE); Influenza B - CEPHEID Flu B NEGATIVE (NEGATIVE)
[2025-03-28 15:16] LABS: COVID-19 CEPHEID 4-PLEX PCR Negative (Negative)
== END ==
PROVIDERS: PCP Internal Medicine; Visit Provider Chiropractor
DX: R05.1 Acute cough (principal)
CPT/HCPCS: 87637